=== PATIENT | female | born 1965 | race African-American/Black ===

== ENCOUNTER 2019-06-02 13:39 | Emergency (ER) | payer OTHER ==
[~2019-06-02] VITALS: Ht 165.1 cm; Wt 101.2 kg
[2019-06-02 13:56] LABS: EOSINOPHILS 2.9 % (0.0-3.0); HEMOGLOBIN 13.3 gm/dL (12.0-15.0); MCH 25.7 pg (26.0-34.0); MCHC 33.3 g/dL (28.0-37.0); MCV 77.1 fL (80.0-100.0); PLATELET COUNT 327 thou/uL (150-400); POLYS 39.1 % (36.0-66.0); RBC 5.19 mil/uL (4.20-5.00); RDW 14.8 % (10.5-14.5); WBC 10.2 thou/uL (4.0-11.0)
[2019-06-02] MEDS ORDERED: METOPROLOL TART75 MG PO (14:02)
[2019-06-02] MEDS ORDERED: HYDROCHLOROTHIA25 M2 PO (14:03)
[2019-06-02] MEDS ORDERED: NORVASC 2.5 MG2.5 M1 PO (14:03)
[2019-06-02 14:05] LABS: ANION GAP 9 mmol/L (7-16); BUN 17 mg/dL (7-18); CALCIUM 9.2 mg/dL (8.5-10.1); CHLORIDE 99 mmol/L (98-107); CO2 29 mmol/L (21-32); CREATININE 0.9 mg/dL (0.6-1.0); GLUCOSE 93 mg/dL (74-106); POTASSIUM 3.3 mmol/L (3.5-5.1); SODIUM 137 mmol/L (136-145)
[2019-06-02 14:15] LABS: SGOT 15 U/L (15-37); SGPT 23 U/L (30-65); TOTAL BILIRUBIN 0.7 mg/dL (<0.1-1.0); TOTAL PROTEIN 8.8 g/dL (6.4-8.2); TROPONIN-I <0.06 ng/mL (<0.06)
[2019-06-02] MEDS ORDERED: MOBIC7.5 MG PO (15:24)
[2019-06-02] MEDS ORDERED: NORFLEX100 MG PO (15:24)
[2019-06-02] MEDS ORDERED: MEDI-PATCH WIT1 EACH TOP (15:24)
[2019-06-02 15:26] VITALS: BP 146/102
--- NOTE | 2019-06-03 08:13 | EKG ---
[facility] [place] [address] ELECTROCARDIOGRAM REPORT Name: TIM PHILLIPS Room #: [facility]#: [id number] Admission: 06/02/19 Attend Phys: Discharge: 06/02/19 Date of : 69 Report #: [id number] THIS REPORT FOR: cc: Kenna Cervantes MD, Karla L. MD Lundgren,Benton Stoddard MD [facility] THIS REPORT FOR: //name// [facility] ED Test Date: 2019-06-02 Test Time: 13:47:04 Pat Name: TIM PHILLIPS Department: Room: Gender: [employer] Press Operator: [facility] : 1965 Requested By: Keeley Hwang Order Number: [id number] MD: Benton Landin Measurements Intervals [place] Rate: 72 P: 27 HI: 218 QRS: -6 QRSD: 98 T: 8 QT: 523 QTc: 573 Interpretive Statements Sinus rhythm Prolonged HI interval Borderline T abnormalities, anterior leads Prolonged QT interval No previous ECG available for comparison Electronically Signed On 06-03-2019 8:12:20 CDT by Benton Landin [email or web address] <ELECTRONICALLY SIGNED> By: Benton Landin MD, [facility] 06/03/19 0812 1347 1347 Benton Landin MD, [facility] /EPI
== END 2019-06-02 15:26 | disposition home or self-care (01) ==
LOC: ER 13:39
PROVIDERS: Emergency Medicine
DX: R07.89 Other chest pain (principal); M54.6 Pain in thoracic spine; I10 Essential (primary) hypertension; Z90.49 Acquired absence of other specified parts of digestive tract; Z79.899 Other long term (current) drug therapy; Z88.8 Allergy status to other drugs, medicaments and biological substances

== ENCOUNTER 2019-06-05 10:17 | Emergency (ER) | payer OTHER ==
[~2019-06-05] VITALS: Ht 165.1 cm; Wt 101.2 kg
[~2019-06-05 10:17] MED LIST: HYDROCHLOROTHIA25 M2 PO; MEDI-PATCH WIT1 EACH TOP; METOPROLOL TART75 MG PO; MOBIC7.5 MG PO; NORFLEX100 MG PO; NORVASC 2.5 MG2.5 M1 PO
[2019-06-05 11:05] LABS: ABSOLUTE NEUTROPHILS 5.5 thou/uL (1.4-8.2); BASOPHILS 0.6 % (0.0-2.0); EOSINOPHILS 4.5 % (0.0-3.0); HEMATOCRIT 42.3 % (37.0-47.0); MCH 25.7 pg (26.0-34.0); MCHC 33.1 g/dL (28.0-37.0); MCV 77.6 fL (80.0-100.0); MONOCYTES 7.4 % (1.0-8.0); PLATELET COUNT 329 thou/uL (150-400); POLYS 52.5 % (36.0-66.0); RBC 5.44 mil/uL (4.20-5.00); RDW 15.2 % (10.5-14.5); WBC 10.5 thou/uL (4.0-11.0)
[2019-06-05 11:26] LABS: ANION GAP 6 mmol/L (7-16); BUN 20 mg/dL (7-18); CALCIUM 8.8 mg/dL (8.5-10.1); CHLORIDE 99 mmol/L (98-107); CO2 33 mmol/L (21-32); GLUCOSE 96 mg/dL (74-106); POTASSIUM 3.2 mmol/L (3.5-5.1); SODIUM 138 mmol/L (136-145)
[2019-06-05 11:36] LABS: ALBUMIN 3.7 g/dL (3.4-5.0); DIRECT BILIRUBIN < 0.1 mg/dL (<0.1-0.2); LIPASE 164 U/L (73-393); SGOT 15 U/L (15-37); SGPT 24 U/L (30-65); TOTAL PROTEIN 8.2 g/dL (6.4-8.2); TROPONIN-I <0.06 ng/mL (<0.06)
--- NOTE | 2019-06-05 12:29 | EKG ---
[facility] [place] [address] ELECTROCARDIOGRAM REPORT Name: TIM PHILLIPS [place] Room #: [facility]#: [id number] Admission: 06/05/19 Attend Phys: Discharge: Date of : 69 Report #: [id number] THIS REPORT FOR: cc: eKnna Cervantes MD, Karla L. MD Couchonnal,Nabeel Dowd MD ~ THIS REPORT FOR: //name// [facility] ED Test Date: 2019-06-05 Test Time: 10:26:55 Pat Name: TIM PHILLIPS Department: Room: Gender: F Outreach Liaison: : 1965 Requested By: Kristal Sanchez Order Number: [id number] : Nabeel Montague Measurements Intervals [place] Rate: 71 P: 28 [place]: 215 QRS: -4 QRSD: 93 T: 8 QT: 497 QTc: 541 Interpretive Statements Sinus arrhythmia Prolonged [place] interval LVH by voltage Compared to ECG 06/02/2019 13:47:04 Left ventricular hypertrophy now present Sinus rhythm no longer present T-wave abnormality no longer present Electronically Signed On 06-05-2019 12:28:16 CDT by Nabeel Montague [email or web address] <ELECTRONICALLY SIGNED> By: Nabeel Montague MD 06/05/19 1228 1026 1026 Nabeel Montague MD /EPI
[2019-06-05] MEDS ORDERED: MOBIC15 MG PO (14:53)
[2019-06-05 15:07] VITALS: BP 98/60
== END 2019-06-05 15:08 | disposition home or self-care (01) ==
LOC: ER 10:17
PROVIDERS: Emergency Medicine
DX: R07.89 Other chest pain (principal); L27.1 Localized skin eruption due to drugs and medicaments taken internally; T42.8X5A Adverse effect of antiparkinsonism drugs and other central muscle-tone depressants, initial encounter; R42 Dizziness and giddiness; R11.0 Nausea; I10 Essential (primary) hypertension; Z79.899 Other long term (current) drug therapy; Z88.8 Allergy status to other drugs, medicaments and biological substances; Y92.89 Other specified places as the place of occurrence of the external cause

== ENCOUNTER 2019-09-24 16:29 | Emergency (ER) | payer OTHER ==
[~2019-09-24] VITALS: Ht 165.1 cm; Wt 103.9 kg
[~2019-09-24 16:29] MED LIST changes: +MOBIC15 MG PO
[2019-09-24] MEDS ORDERED: KLOR-CON M1010 MEQ PO (17:20)
[2019-09-24] MEDS ORDERED: MEDROLDOSEPACK PO (18:43)
[2019-09-24] MEDS ORDERED: NORCO 7.5-3251 EACH PO (18:43)
[2019-09-24] MEDS ORDERED: CYCLOBENZAPRINE5 MG PO (18:43)
[2019-09-24 18:57] VITALS: BP 144/93
== END 2019-09-24 18:45 | disposition home or self-care (01) ==
LOC: ER 16:29
DX: M25.561 Pain in right knee (principal); M54.31 Sciatica, right side; I10 Essential (primary) hypertension; E11.9 Type 2 diabetes mellitus without complications; Z90.710 Acquired absence of both cervix and uterus; Z79.899 Other long term (current) drug therapy; Z88.8 Allergy status to other drugs, medicaments and biological substances